=== PATIENT | male | born 1980 | race Caucasian/White ===

== ENCOUNTER 2019-03-08 12:09 | Emergency (ER) | payer OTHER ==
[~2019-03-08] VITALS: Ht 175.3 cm; Wt 127.0 kg
[~2019-03-08 12:09] MED LIST: NAPROXEN
[2019-03-08 12:12] VITALS: BP 142/78
== END 2019-03-08 13:46 | disposition left against medical advice (07) ==
LOC: ER 12:09
DX: R45.851 Suicidal ideations (principal); Z53.21 Procedure and treatment not carried out due to patient leaving prior to being seen by health care provider